=== PATIENT | male | born 1965 | race Caucasian/White ===

== ENCOUNTER 2020-06-18 16:52 | Emergency (ER) | payer BC, OTHER ==
[~2020-06-18] VITALS: Ht 190.5 cm; Wt 114.9 kg
[~2020-06-18 16:52] MED LIST: DEXILANT60 MG PO; ENBREL50 MG/1 ML SQ; FOLIC ACID PO; INDOCIN25 MG/5 ML; MAVIK1 MG; NEXIUM40 MG; TREXALL5 MG; VIT D PO
[2020-06-18] MEDS ORDERED: LIDOCAINE HCL 2% LOCAL 20 ML VIAL ONE (17:17)
[2020-06-18] MEDS ORDERED: TETANUS/DIPHTHERIA TOX ADULT 0.5 ML SYR IM ONE (17:45)
--- OUTSIDE RECORDS SUMMARY | 2020-06-18 17:46 | XMS REPORT | Continuity of Care Document ---
Author Author Cheko Duncan Wozityou TREY Silva [employer] Address Unknown Phone Unavailable Care Team Providers Care Sdv Pilot/Navigator/Dds Operator Name Role Phone [employer] Unavailable Un available Problems Problem Status Onset Date Classification Date Reported Comments Source Postlaminectomy syndrome, not elsewhere classified 10/14/2018 04/27/2019 [facility] DX: M45.0/Z79.899/L40.9/M54.2/M54.5/H20. Active 07/27/2018 [place] Uveitis Active Problem 04/18/2020 Bam Kelly Low back pain Active Problem 04/18/2020 [facility],Bam Kelly Movement disorder Active Problem 04/18/2020 Bam Kelly Other fdc (current) drug therapy Active Problem [facility],Bam Kelly Ankylosing spondylitis of multiple sites in spine Active Problem 04/18/2020 [facility],Bam Kelly Neck pain Active Problem 04/18/2020 Bam Kelly Psoriasis Active Problem 04/18/2020 Bam Kelly Pain Active Diagnosis 09/07/2019 Bam Kelly Polyarthritis Active Problem 04/18/2020 Bam Kelly Immunocompromised state Active Diagnosis 04/18/2020 Bam Kelly Other specified counseling Act caroline Problem Bam Kelly Left shoulder pain Active Diagnosis 04/10/2020 Bam Kelly Trochanteric bursitis of left hip Active Diagnosis 0 04/18/2020 Bam Kelly Psoriasis, unspecified 02/20/2019 [facility] Cervicalgia 02/20/2019 [facility] 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 [facility] Extrapyramidal and movement disorder, unspecified 02/20/2019 [facility] Medications Medication Details Route Status Patient Instructions Ordering Provider Order Date Source Duexis 1 tablet Orally Active 800-26.6 MG Orally once a day prn Roberth 08/13/2020 Bam Diazer Duexis 1 tablet Orally Active 800-26.6 MG Orally once a day prn Moran 08/13/2020 Bam Kelly Enbrel inject 50mg Subcutaneous Active 50 MG/ML Subcutaneous o nce a week Moran 01/19/2020 [place] Kelly Prednisone Taper 3 tablets for 5 days, 2 tablets for 5 days and then 1 tablet for 5 days PO Active 5mg PO as directed [place] 12/21/2019 Bam Kelly Enbrel inject 50mg Subcutaneous Active 50 MG/ML Subcutaneous o nce a week [place] 11/14/2019 Bam Diazer Folic Acid 1 tablet Orally Active 1 MG Orally Once a day [place] 10/12/2019 [place] Kelly Methotrexate 6 tablets Orally Active 2.5 MG Orally Once a we ek [place] 10/12/2019 Bam Kelly Enbrel inject 50mg Subcutaneous Active 50 MG/ML Subcutaneous o nce a week [place] 09/07/2019 Bam Kelly Zanaflex 1 tablet as needed Orally Active 4 MG Orally q hs [place] 09/05/2019 Bam Kelly Enbrel inject 50mg Subcutaneous Active 50 MG/ML Subcutaneous o nce a week [place] 08/13/2019 Bam Diazer Methotrexate 6 tablets Orally Active 2.5 MG Orally Once a we ek [place] 07/17/2019 Bam Kelly Folic Acid 1 tablet Orally Active 1 MG Orally Once a day [place] 07/14/2019 Bam Kelly Prednisone Taper 3 tablets for 5 days, 2 tablets for 5 days and then 1 tablet for 5 days PO Active 5mg PO QD [place] 07/11/2019 Bam Kelly Cyclobenzaprine HCl 1 tablet a s needed Orally Active 10 MG Orally nmn [place] 03/27/2019 Bam Kelly Cyclobenzaprine HCl 1 tablet a s needed Orally Active 10 MG Orally prn [place] 03/27/2019 Bam Kelly Folic Acid 1 tablet Orally Active 1 MG Orally Once a day [place] 02/23/2019 [place] Kelly Methotrexate 6 tablets Orally Active 2.5 MG Orally Once a we ek [place] 01/03/2019 Bam Kelly Folic Acid 1 tablet Orally Active 1 MG Orally Once a day [place] 04/28/2018 [place] Kelly Methotrexate 6 tablets Orally Active 2.5 MG Orally Once a we ek [place] 04/28/2018 Bam Kelly Prednisone Taper 3 tablets for 5 days, 2 tablets for 5 days and then 1 tablet for 5 days orally Active 5mg orally q am with fo od [place] 04/15/2018 Bam Kelly Methotrexate 6 tablets Orally Active 2.5 MG Orally Once a we ek [place] 12/17/2017 Bam Kelly Cyclobenzaprine HCl 1 tablet a s needed Orally Active 10 MG Orally bid [place] 12/17/2017 Bam Kelly Folic Acid 1 tablet Orally Active 1 MG Orally Once a day Kelly Faraz Kelly Duexis 1 tablet Orally Active 800-26.6 MG Orally Once a day Leticia Kelly Vitamin B12 1 tablet Orally Active 100 MCG Orally Once a d ay Zain Kelly Vitamin D 1 tablet Orally Active 4000 UNIT Orally once a day Zain Kelly Enbrel 1 ml Subcutaneous Active 50 MG/ML Subcutaneous o nce a week Leticia Kelly Tribenzor 0.5 tab Orally Active 40-10-25 MG Orally Once a day Leticia Kelly Pennsaid 2 applications to aff ected area Transdermal Active 2 % Transdermal Twice a day DANIAN Leticia Kelly Prilosec OTC 1 tablet Orally Active 20 MG Orally Once a day Leticia Kelly Folic Acid 1 tablet Orally Active 1 MG Orally Once a day Leticia Kelly Methotrexate 6 tablets Orally Active 2.5 MG Orally once a we ek Kelly Bam Kelly Testosterone Propionate as dir ected Intramuscular Active 100 MG/ML Intramuscular Leticia Kelly Prilosec 1 capsule Orally Active 40 MG Orally Once a day Zain Kelly Nexium 1 capsule Orally Active 20 MG Orally Once a day Leticia Kelly Anastrozole 1 tablet Orally Active 1 MG Orally Once a day Leticia Kelly Enbrel inject 50mg Subcutaneous Active 50 MG/ML Subcutaneous o nce a week Leticia Kelly Folic Acid TAKE 1 TABLET BY [facility] ONCE A DAY NA Active 1 MG Leticia Kelly Enbrel 1 ml Subcutaneous Active 50 MG/ML Subcutaneous o nce a week Leticia Kelly Folic Acid TAKE 1 TABLET BY [facility] ONCE A DAY NA Active 1 MG Zain Kelly Taclonex 1 application Externally Active 0.005-0.064 % Externally prn Leticia Kelly Amlodipine Besylate 0.5 tablet Orally Active 10 MG Orally Once a day Leticia Kelly Olmesartan Medoxomil-HCTZ 0.5 tablet Orally Active 40-25 MG Orally Once a day Leticia Kelly Omeprazole 1 capsule 30 minute s before morning meal Orally Active 40 MG Orally Once a day Leticia Kelly Methotrexate TAKE 6 TABLETS BY MOUTH ONCE A WEEK NA Active 2. 5 MG Zain Kelly Olmesartan Medoxomil-HCTZ 0.5 tablet Orally Active 40-25 MG Orally Once a day Zain Kelly Amlodipine Besylate 0.5 tablet Orally Active 10 MG Orally Once a day Zain Kelly Allergies, Adverse Reactions, Alerts Substance Category Reaction Severity Reaction type Status Date Reported Comments Source N.K.D.A. Adverse Reaction Info Not Available Adverse Reaction 04/16/2020 Bam Kelly Immunizations No Data Provided for This Section Results No Data Provided for This Section Pathology Reports No Data Provided for This Section Diagnostic Reports Report Value Date Source Spine lumbar w/wo contrast MRI Spine lumbar w/wo contrast MRI 10/07/2018 7:56 [facility] CLINICAL: M96.1 Postlaminectomy syndrome, not elsewhere classified - M96.1 Postlaminectomy syndrome, not elsewhere classified TECHNIQUE: Sagittal T1, sagittal T2 with fat saturation, axial T1 and axial T2 images were obtained. Intravenous gadolinium was given. Contrast: 20 mL gadolinium IV contrast. COMPARISON: No prior exam. FINDINGS: Lumbosacral junction transitional vertebra is identified, and is labeled as 'S1'. Please see the sagittal images for the numbering system used. The conus medullaris terminates at the L2 level. The cauda equina appears unremarkable. T12-L1: There is preservation of the disc signal intensity, height, with no bulging, herniation, spinal stenosis, or neural foraminal stenosis. L1-L2: 7 mm anterior osteophytosis. No central canal or foraminal stenosis. Bilateral extra foraminal disc osteophyte complexes are present. L2-L3: 2 mm disc bulge. No significant central canal stenosis. Mild to moderate bilateral foraminal stenosis due to disc osteophyte complex encroachment, with mild mass effect on left L2 exiting nerve root. L3-L4: Laminectomy has been performed. No evidence of pseudomeningocele. Widely patent thecal sac. No foraminal stenosis. L4-L5: 9.8 mm L4 vertebral body osseous hemangioma. Laminectomy has been performed. Patent thecal sac. No foraminal stenosis. L5-S1: Laminectomy. 8 mm anterolisthesis. No evidence of central canal stenosis. Moderate bilateral foraminal stenosis is present with mass effect on bilateral L5 exiting nerve roots. No abnormal enhancement is seen. IMPRESSION: 1. . Lumbosacral junction transitional v ertebra is identified, and is labeled as 'S1'. Please see the sagittal images for the numbering system used. 2. L2-L3 mild to moderate bilateral fora daphne stenosis as above. 3. L3-L4, L4-L5, L5-S1 laminectomies. No evidence of pseudomeningocele or arachnoiditis. 4. L5-S1 8mm anterolisthesis. No central canal stenosis. Moderate bilateral foraminal stenosis. 10/07/2018 [facility] [place] [facility] [place] Patient Name: ANDRIA ESCUDERO : 1965; Age: 53 years y/o Female MR: [id number] Study: Bone scan [place] 08/03/2018 8:00 AM CDT Clinical Indication: - Ankylosing spondylitis of multiple sites in spine; Comparison: None TECHNIQUE: Total body bone scan is performed using 27.1 mCi of technetium 99m-MDP injected intravenously in the right antecubital IV. FINDINGS: Whole body delayed and regional delayed images are obtained. Normal tracer activity is identified within the kidneys and urinary bladder. Mild focal increased uptake about both knees most consistent with degenerative changes. No abnormal areas of tracer activity identified in the bones or soft tissues. IMPRESSION: 1. Mild degenerative changes about both knees. 2. Otherwise unremarkable bone scan. SL: [id number] 08/03/2018 [facility] Consultation Notes No Data Provided for This Section Discharge Summaries No Data Provided for This Section History and Physicals No Data Provided for This Section Vital Signs Vital Sign Value Date Comments Source Weight 252.3 04/16/2020 [place] Kelly Height 75.1 04/16/2020 Bam Kelly Temperature Oral (F) 98.3 F 04/16/2020 Bam Kelly Heart Rate 80 04/16/2020 Bam Kelly Diastolic (mm Hg) 69 04/16/2020 Bam Kelly Systolic (mm Hg) 118 04/16/2020 Bam Kelly Weight 258.6 04/01/2020 [facility] Height 75 0 04/01/2020 [facility] Temperature Oral (F) 98.0 F 04/01/2020 Bam Kelly Heart Rate 60 04/01/2020 Bam Kelly Diastolic (mm Hg) 68 04/01/2020 Bam Kelly Systolic (mm Hg) 120 04/01/2020 Bam Kelly Weight 250 02/15/2020 Bam Kelly Height 75 0 02/15/2020 Bam Kelly Temperature Oral (F) 97.3 F 02/15/2020 Bam Kelly Heart Rate 69 02/15/2020 Bam Kelly Diastolic (mm Hg) 70 02/15/2020 Bam Kelly Systolic (mm Hg) 124 02/15/2020 Bam Kelly Weight 262.7 08/15/2019 Bam Kelly Height 75 1 Bam Kelly Temperature Oral (F) 97.0 F 08/15/2019 Bam Kelly Heart Rate 80 08/15/2019 Bam Kelly Diastolic (mm Hg) 62 08/15/2019 Bam Kelly Systolic (mm Hg) 122 08/15/2019 Bam Kelly Weight 261.2 02/14/2019 Bam Kelly Height 75 0 02/14/2019 Bam Kelly Temperature Oral (F) 97.9 F 02/14/2019 Bam Kelly Heart Rate 76 02/14/2019 Bam Kelly Diastolic (mm Hg) 78 02/14/2019 Bam Kelly Systolic (mm Hg) 110 02/14/2019 Bam Kelly Weight 257.1 04/15/2018 Bam Kelly Height 75 0 04/15/2018 Bam Kelly Temperature Oral (F) 97.9 F 04/15/2018 Bam Kelly Heart Rate 80 04/15/2018 Bam Kelly Diastolic (mm Hg) 78 04/15/2018 Bam Kelly Systolic (mm Hg) 130 04/15/2018 Bam Kelly Weight 244 12/17/2017 Bam Kelly Height 75 0 12/17/2017 Bam Kelly Temperature Oral (F) 97.5 F 12/17/2017 Bam Kelly Heart Rate 72 12/17/2017 Bam Kelly Diastolic (mm Hg) 60 12/17/2017 Bam Kelly Systolic (mm Hg) 112 12/17/2017 Bam Kelly Encounters Location Location Details Encounter Type Encounter Number Reason For Visit Attending Provider ADM Date DC Date Status Source [facility] [id number] Demetrius Kelly 08/03/2018 08/04/2018 [facility] [id number] Barbara Swann 10/07/2018 10/08/2018 [facility] Procedures No Data Provided for This Section Assessment and Plan No Data Provided for This Section Plan of Care No Data Provided for This Section Social History Social History Date Source No data available for this section 10/08/2018 [facility] No data available for this section 08/04/2018 [facility] Family History No Data Provided for This Section Advance Directives No Data Provided for This Section Functional Status No Data Provided for This Section
--- OUTSIDE RECORDS SUMMARY | 2020-06-18 17:46 | XMS REPORT ---
Author Author TREY Kelly Organization [employer] Address Unknown Phone Unavailable Care Team Providers Care Rn Cardiac Name Role Phone Demetrius Kelly CP Unavailable Allergies No Known Allergies Problems Problem Type Condition Code Onset Dates Condition Statu s Problem Ankylosing spondylitis of multiple sites in spine M45. 0 Active Problem Psoriasis L40.9 Active Problem Other usp (current) drug therapy Z79.899 Active Problem Polyarthritis M13.0 Active Problem Immunocompromised state D89.9 Acti ve Problem Other specified counseling Z71.89 A ctive Problem Low back pain M54.5 Active Problem Neck pain M54.2 Active Problem Movement disorder G25.9 Active Problem Uveitis H20.9 Active Medications Medication Code System Code Instructions Start Date End Date Status Dosage Enbrel [facility] 71131511363 50 MG/ML Subcutaneous once a week [facility] 2019 Active inject 50mg Results No Known Results Summary Purpose eClinicalWorks Submission
--- OUTSIDE RECORDS SUMMARY | 2020-06-18 17:46 | XMS REPORT ---
Author Author TREY Kelly Organization [employer] Address Unknown Phone Unavailable Care Team Providers Care Customer Assistance Associate Name Role Phone Demetrius Kelly CP Unavailable Allergies No Known Allergies Problems Problem Type Condition Code Onset Dates Condition Statu s Problem Ankylosing spondylitis of multiple sites in spine M45. 0 Active Problem Psoriasis L40.9 Active Problem Other retirement (current) drug therapy Z79.899 Active Problem Polyarthritis M13.0 Active Problem Immunocompromised state D89.9 Acti ve Problem Other specified counseling Z71.89 A ctive Problem Low back pain M54.5 Active Problem Neck pain M54.2 Active Problem Movement disorder G25.9 Active Problem Uveitis H20.9 Active Medications No Known Medications Results No Known Results Summary Purpose eClinicalWorks Submission
--- OUTSIDE RECORDS SUMMARY | 2020-06-18 17:46 | XMS REPORT ---
Author Author TREY Lepe [facility] e[employer] Address Unknown Phone Unavailable Care Team Providers Care Offset Platemaker Name Role Phone Ailyn Lepe CP Unavailable Allergies, Adverse Reactions, Alerts Substance Reaction Event Type N.K.D.A. Info Not Available Non Drug Allergy Problems Problem Type Condition Code Onset Dates Condition Statu s Problem Ankylosing spondylitis of multiple sites in spine M45. 0 Active Problem Psoriasis L40.9 Active Problem Other skilled nursing (current) drug therapy Z79.899 Active Assessment Other oil heaterman (current) drug therapy Z79.899 Active Assessment Ankylosing spondylitis of multiple sites in spine M45. 0 Active Assessment Left shoulder pain M25.512 Active Assessment Immunocompromised state D89.9 Acti ve Problem Polyarthritis M13.0 Active Problem Immunocompromised state D89.9 Acti ve Problem Other specified counseling Z71.89 A ctive Problem Low back pain M54.5 Active Problem Neck pain M54.2 Active Problem Movement disorder G25.9 Active Problem Uveitis H20.9 Active Medications Medication Code System Code Instructions Start Date End Date Status Dosage Olmesartan Medoxomil-HCTZ [facility] 61475150193 40-25 MG Orally Once a day Active 0.5 tablet Enbrel [facility] 42588007207 50 MG/ML Subcutaneous once a week Jean-Claude 2019 Active inject 50mg Cyclobenzaprine HCl [facility] 42981665281 10 MG Orally prn March 27, 2019 Active 1 tablet as needed Duexis [facility] 17259247886 800-26.6 MG Orally once a day prn Oc t 2019 Active 1 tablet Amlodipine Besylate [facility] 86535563031 10 MG Orally Once a day Active 0.5 tablet Prilosec [facility] [address]-33 40 MG Orally Once a day A ctive 1 capsule Vitamin B12 [facility] 59356461154 100 MCG Orally Once a day Active 1 tablet Vitamin D [facility] 04896893334 4000 UNIT Orally once a day Active 1 tablet Zanaflex [facility] 96099717958 4 MG Orally q hs Sep 05, 2019 Activ e 1 tablet as needed Folic Acid [facility] 71087036211 1 MG Active TAKE 1 TA BLET BY MOUTH ONCE A DAY Methotrexate [facility] 74627405724 2.5 MG Active TAKE 6 TABLETS BY MOUTH ONCE A WEEK Vital Signs Date/Time: April 01, 2020 BMI 32.32 Index Weight 258.6 lbs Height 75 in Temperature 98.0 F Cardiac Monitoring Heart Rate 60 /min Blood Pressure Diastolic 68 mm Hg Blood Pressure Systolic 120 mm Hg Results No Known Results Summary Purpose eClinicalWorks Submission
--- OUTSIDE RECORDS SUMMARY | 2020-06-18 17:46 | XMS REPORT ---
Author Author TREY Pittman Organization e[employer] Address Unknown Phone Unavailable Care Team Providers Care Patient Support Assistant Name Role Phone Ambar Pittman CP Unavailable Allergies, Adverse Reactions, Alerts Substance Reaction Event Type N.K.D.A. Info Not Available Non Drug Allergy Problems Problem Type Condition Code Onset Dates Condition Statu s Problem Ankylosing spondylitis of multiple sites in spine M45. 0 Active Problem Psoriasis L40.9 Active Problem Other intermediate project manager (current) drug therapy Z79.899 Active Assessment Other alf (current) drug therapy Z79.899 Active Assessment Ankylosing spondylitis of multiple sites in spine M45. 0 Active Assessment Trochanteric bursitis of left hip M70.62 Active Assessment Immunocompromised state D89.9 Acti ve Problem Polyarthritis M13.0 Active Problem Immunocompromised state D89.9 Acti ve Problem Other specified counseling Z71.89 A ctive Problem Low back pain M54.5 Active Problem Neck pain M54.2 Active Problem Movement disorder G25.9 Active Problem Uveitis H20.9 Active Medications Medication Code System Code Instructions Start Date End Date Status Dosage Vitamin B12 [facility] 42893805518 100 MCG Orally Once a day Active 1 tablet Cyclobenzaprine HCl [facility] 70169126980 10 MG Orally prn March 27, 2019 Active 1 tablet as needed Zanaflex [facility] 44626878200 4 MG Orally q hs Sep 05, 2019 Activ e 1 tablet as needed Enbrel [facility] 77228084394 50 MG/ML Subcutaneous once a week Jean-Claude 2019 Active inject 50mg Vitamin D ND 17133494125 4000 UNIT Orally once a day Active 1 tablet Prilosec [facility] [address]-57 40 MG Orally Once a day A ctive 1 capsule Duexis [facility] [address]-47 800-26.6 MG Orally once a day prn Aug 13, 2020 Active 1 tablet Folic Acid [facility] 09530774730 1 MG Active TAKE 1 TA BLET BY MOUTH ONCE A DAY Methotrexate [facility] 49245482513 2.5 MG Active TAKE 6 TABLETS BY MOUTH ONCE A WEEK Olmesartan Medoxomil-HCTZ [facility] 71318633589 40-25 MG Orally Once a day Active 0.5 tablet Amlodipine Besylate [facility] 26363954396 10 MG Orally Once a day Active 0.5 tablet Vital Signs Date/Time: April 16, 2020 BMI 31.45 Index Weight 252.3 lbs Height 75.1 in Temperature 98.3 F Cardiac Monitoring Heart Rate 80 /min Blood Pressure Diastolic 69 mm Hg Blood Pressure Systolic 118 mm Hg Results No Known Results Summary Purpose eClinicalWorks Submission
[2020-06-18] MEDS ORDERED: TETANUS/DIPHTHERIA TOX ADULT 0.5 ML SYR ONE (18:00)
[2020-06-18] MEDS ORDERED: DOXYCYCLINE HY100 M4 PO (18:09)
[2020-06-18] MEDS ORDERED: ULTRAM50 MG PO (18:09)
--- NOTE | 2020-06-18 18:09 | Emergency Department Note ---
History of Present Illnes History of Present Illness Chief Complaint: cut to nail of left 4th index finger while using a blade to cut History of Present Illness This is a 55 year old male. was doing well prior to this. Historian: Patient Arrival Mode: Car History limited by: condition of the patient (normal) School Bus Inspector Required: No Onset (how long ago): week(s) Location: see above Quality: sharp Radiation: Reports non-radiation Severity: severe Onset quality: sudden Progression: unchanged Chronicity: new Context: Reports trauma/injury; Denies recent illness, Denies recent surgery, Denies recent immobilization, Denies recent travel, Denies new medications, Denies hx of DVT/PE, Denies non- compliance w/ medications Relieving factors: none Exacerbating factors: movement Associated symptoms: Reports denies other symptoms Treatments prior to arrival: none Past Medical/Family History Physician Review I have reviewed the patient's past medical and family history. Any updates have been documented here. Past Medical History Recent Fever: No Clinical Suspicion of Infectio: No New/Unexplained Change in Ment: No Past Medical History: Hypertension, GERD, Hyperlipedemia Other Medical History: anklosing spondolytis Past Surgical History: Back Surgery Other Surgery: right leg compartment syndrome heart ablation Social History Smoking Cessation: Never Smoker Counseling Performed: No Alcohol Use: None Any Illegal Drug Use: No Physically hurt or threatened: No Other Any Pre-Existing Lines (PICC,: No Review of Systems Review of Systems Constitutional: Reports no symptoms EENTM: Reports no symptoms Cardiovascular: Reports no symptoms Respiratory: Reports no symptoms Gastrointestinal: Reports no symptoms Genitourinary: Reports no symptoms Musculoskeletal: Reports no symptoms Integumentary: Reports no symptoms Neurological: Reports no symptoms Psychological: Reports no symptoms Endocrine: Reports no symptoms Hematological/Lymphatic: Reports no symptoms Review of other systems: All other systems negative Physical Exam Related Data Allergies: Coded Allergies: No Known Allergies (Unverified , 04/02/11) Triage Vital Signs Vital Signs Date Time Temp Pulse Resp B/P (MAP) Pulse Ox O2 Delivery O2 Flow Rate FiO2 06/18/20 16:56 97.5 77 18 144/79 97 Room Air Vital signs reviewed: Yes Physical Exam CONSTITUTIONAL Constitutional: Present well-developed, Present well-nourished HENT HENT: Present normocephalic, Present atraumatic, Present oropharynx clear/moist, Present nose normal HENT L/R: Present left ext ear normal, Present right ext ear normal EYES Eyes: Reports PERRL, Reports conjunctivae normal NECK Neck: Present ROM normal PULMONARY Pulmonary: Present effort normal, Present breath sounds normal CARDIOVASCULAR Cardiovascular: Present regular rhythm, Present heart sounds normal, Present capillary refill normal, Present normal rate GASTROINTESTINAL Abdominal: Present soft, Present nontender, Present bowel sounds normal GENITOURINARY Genitourinary: Present exam deferred SKIN Skin: Present warm, Present dry MUSCULOSKELETAL Musculoskeletal: Present ROM normal NEUROLOGICAL Neurological: Present alert, Present oriented x 3, Present no gross motor or sensory deficits PSYCHOLOGICAL Psychological: Present mood/affect normal, Present judgement normal Procedures Procedures Procedure: using aseptic technique, surgicel applied to wound along with a pressure dressing. bleeding resolved. no complications Nerve Block Nerve Block: Nerve Block 1 Time out performed: Yes Local anesthetic: lidocaine 1% Amount of anesthesia (mL): 7 Side: left (index finger) Nerve blocks: digital Procedure successful: Yes Patient tolerated procedure: well Complications: none Critical Care Time Comments [place] MP OVERDOSE [id number] Assessment & Plan Medical Decision Making MDM see below Assessment & Plan Final Impression: (1) Nailbed laceration, finger Depart Disposition: HOME, SELF-CARE Last Vital Signs Date Time Temp Pulse Resp B/P (MAP) Pulse Ox O2 Delivery O2 Flow Rate FiO2 06/18/20 16:56 97.5 77 18 144/79 97 Room Air Home Meds Active Scripts Tramadol Hcl (ULTRAM) 50 Mg Tablet, 50 MG PO Q4HR PRN for MODERATE PAIN (4-6), #30 TAB Prov:AIDA SILVA 06/18/20 Doxycycline Hyclate (DOXYCYCLINE HYCLATE) 100 Mg Tablet., 100 MG PO Q12H, #20 TAB Prov:AIDA SILVA 06/18/20 Reported Medications [Vit D] No Conflict Check, 4000 UNITS PO DAILY 06/07/14 [Folic Acid] No Conflict Check, MG PO DAILY, #1 06/07/14 Dexlansoprazole (DEXILANT) 60 Mg Cap, 60 MG PO DAILY 06/07/14 Etanercept (ENBREL) 50 Mg/1 Ml Disp.syrin, 50 MG SQ WEEKLY 06/01/14 Indomethacin (INDOCIN) 25 Mg/5 Ml Oral.susp, DAILY 10/25/12 Esomeprazole Magnesium (NEXIUM) 40 Mg Capsule.dr, DAILY 10/25/12 Methotrexate Sodium (TREXALL) 5 Mg Tablet 6TABS ONCE A WK 10/25/12 Trandolapril (MAVIK) 1 Mg Tab, DAILY 10/25/12 Medications in the ED Lidocaine HCl 400 mg STK-MED ONCE .ROUTE ; Start 06/18/20 at 17:17; Stop 06/18/20 at 17:11; Status DC Tetanus/ Diphtheria Toxoids 0.5 ml ONCE ONCE IM ; Start 06/18/20 at 17:45; Stop 06/18/20 at 17:46 AIDA SILVA Jun 18, 2020 18:09
== END 2020-06-18 18:19 | disposition home or self-care (01) ==
LOC: FSED 16:52
DX: S61.311A Laceration without foreign body of left index finger with damage to nail, initial encounter (principal); W26.8XXA Contact with other sharp object(s), not elsewhere classified, initial encounter; Y92.008 Other place in unspecified non-institutional (private) residence as the place of occurrence of the external cause; I10 Essential (primary) hypertension; E78.5 Hyperlipidemia, unspecified; K21.9 Gastro-esophageal reflux disease without esophagitis
CPT/HCPCS: 12001; 90471; 90714; 99283; J2001